=== PATIENT | male | born 1995 | race African-American/Black ===

== ENCOUNTER 2021-12-29 19:40 | Emergency (ER) | payer OTHER, SELFPAY | END 2021-12-29 21:55 | disposition home or self-care (01) | LOC: BURERS 19:40 | DX: S09.90XA Unspecified injury of head, initial encounter (principal); M54.2 Cervicalgia; V80.010A Animal-rider injured by fall from or being thrown from horse in noncollision accident, initial encounter | CPT/HCPCS: 70450 ==